=== PATIENT | male | born 1940 | race Caucasian/White ===

== ENCOUNTER 2016-10-05 05:14 | Day surgery (SDC) | payer MEDICARE, MEDICAID ==
[~2016-10-05] VITALS: Ht 162.6 cm; Wt 57.6 kg
[~2016-10-05 05:14] MED LIST: ASPI-1159 PO; CYAN25006 SL; FLUT15.88 NS; GINK120C PO; METO50TA5 PO; MULT-1234 PO; OMEG-69 PO; SIMV10TA6 PO
[2016-10-05] MEDS ORDERED: LACTATED RINGERS 1,000 ML IV SCH (06:15)
[2016-10-05] MEDS ORDERED: BUPIVACAINE HCL 0.5% (5MG/ML) 50ML ONE (06:55)
[2016-10-05] MEDS ORDERED: SKIN ADHESIVE 0.7 GM EA TOP ONE (06:55)
[2016-10-05] MEDS ORDERED: CEFAZOLIN 1000MG/50ML PREMIX IV ONE (07:30)
[2016-10-05] MEDS ORDERED: FENTANYL CITRATE/PF 50MCG/ML 2ML VIAL ONE (07:30)
[2016-10-05] MEDS ORDERED: PROPOFOL 200MG/20ML VIAL IV ONE (07:30)
[2016-10-05] MEDS ORDERED: MIDAZOLAM HCL 2 MG/2 ML VIAL ONE (07:30)
[2016-10-05] MEDS ORDERED: ONDANSETRON HCL 4MG/2ML VIAL ONE (07:30)
[2016-10-05] MEDS ORDERED: HYDROMORPHONE HCL/PF 2MG/ML CPJ IV PRN (07:45)
[2016-10-05] MEDS ORDERED: ONDANSETRON HCL 4MG/2ML VIAL IV PRN (07:45)
[2016-10-05] MEDS ORDERED: LABETALOL HCL 20MG/4ML CARPUJECT IV PRN (07:45)
[2016-10-05] MEDS ORDERED: MEPERIDINE HCL/PF 25MG/ML CPJ IV PRN (07:45)
[2016-10-05] MEDS ORDERED: BUPIVACAINE HCL 0.5% 125 ML in ON-Q PM012 DRUG DELIV DEVICE 1 EA IR ONE (08:00)
== END 2016-10-05 10:56 | disposition home or self-care (01) ==
LOC: OR 05:14
PROVIDERS: ATTEND Surgery
DX: K40.90 Unilateral inguinal hernia, without obstruction or gangrene, not specified as recurrent (principal); I10 Essential (primary) hypertension; Z87.891 Personal history of nicotine dependence; Z95.1 Presence of aortocoronary bypass graft
CPT/HCPCS: 49505; C1781; G0168; J0690; J2250; J2405; J3010; J3490; J7120; J2704

== ENCOUNTER → 2018-04-11 | Outpatient (CLI) | payer MEDICARE, MEDICAID ==
[~2018-04-11] MED LIST changes: +BARIUM SULFATE 450ML ORAL SUSP ONE; +METO-539 PO; -METO50TA5 PO
== END | disposition home or self-care (01) ==
LOC: CT 07:47
PROVIDERS: ATTEND Surgery
DX: J92.9 Pleural plaque without asbestos (principal)
CPT/HCPCS: 74176

== ENCOUNTER 2021-07-26 12:32 | Emergency (ER) | payer MEDICARE, MEDICAID ==
[~2021-07-26] VITALS: Ht 177.8 cm; Wt 73.0 kg
[~2021-07-26 12:32] MED LIST changes: -ASPI-1159 PO; +ASPI-1497 PO; -BARIUM SULFATE 450ML ORAL SUSP ONE; +CHOL400D7 PO; +FLUT15.844 NS; -FLUT15.88 NS; +GABA-529 PO; +HYDR-4134 MT; +IBUP-2030 MT; -SIMV10TA6 PO; +SIMV10TA97 PO
[2021-07-26] MEDS ORDERED: SODIUM CHLORIDE 0.9% 1,000 ML IV ONE (17:45)
[2021-07-26 17:57] LABS: CLARITY URINE CLEAR (CLEAR); COLOR URINE YELLOW (YELLOW); KETONES URINE TRACE (NEGATIVE); LEUKOCYTE ESTERASE URINE NEGATIVE (NEGATIVE); NITRITE URINE NEGATIVE (NEGATIVE); OCCULT BLOOD URINE NEGATIVE (NEGATIVE); PH URINE 6.5 (4.5-8.0); PROTEIN URINE NEGATIVE (NEGATIVE); SPECIFIC GRAVITY URINE 1.016 (1.005-1.030); UROBILINOGEN URINE 0.2 E.U./dL (0.2-1.0)
[2021-07-26 18:04] LABS: BASOPHILS % 0.5 % (0.0-2.0); EOSINOPHILS % 0.8 % (0.0-5.0); HEMATOCRIT. 42.8 % (42.0-52.0); HEMOGLOBIN. 14.4 g/dL (14.0-18.0); MEAN CORPUSCULAR HEMOGLOBIN 29.6 pg (28.0-32.0); MEAN CORPUSCULAR VOLUME 87.7 fL (80.0-94.0); MEAN PLATELET VOLUME 8.6 fl (7.4-10.4); MONOCYTES % 6.9 % (2.0-8.0); NEUTROPHILS % 81.8 % (40.0-76.0); PLATELET 380 x1000/uL (130-400); RED BLOOD CELL COUNT 4.88 mill/uL (4.7-6.1); RED CELL DISTRIBUTION WIDTH 14.6 % (11.6-14.6)
[2021-07-26 18:08] LABS: CHLORIDE 105 mEq/L (98-107)
[2021-07-26 20:35] VITALS: BP 133/51
== END 2021-07-26 20:49 | disposition home or self-care (01) ==
LOC: ER 12:57
DX: R55 Syncope and collapse (principal); Z98.890 Other specified postprocedural states
CPT/HCPCS: 36415; 70450; 71045; 80053; 81003; 83880; 84484; 85025; 93005; 96360; 99285; J7030